=== PATIENT | male | born 1990 | race Caucasian/White ===

== ENCOUNTER 2020-01-20 07:05 | Outpatient (REF) | payer SELFPAY | END 2020-01-20 07:06 | disposition home or self-care (01) | LOC: HO.LAB 07:05 | PROVIDERS: Visit Provider Internal Medicine | DX: Z20.828 Contact with and (suspected) exposure to other viral communicable diseases (principal) | CPT/HCPCS: C9803; U0003 ==

== ENCOUNTER 2022-11-24 07:09 | Emergency (ER) | payer OTHER, SELFPAY ==
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
[2022-11-24 07:17] VITALS: BP 126/60; BP 135/73; PULSE 60; PULSE 70; RESP 18; TEMP 36.4; O2SAT 99; BMI 31.9
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
[2022-11-24] MEDS: Ibuprofen 400 MG TABLET PO (07:24)
== END 2022-11-24 08:10 | disposition home or self-care (01) ==
PROVIDERS: Emergency Provider Emergency Medicine Emergency Medical Services; PCP Internal Medicine
DX: S39.012A Strain of muscle, fascia and tendon of lower back, initial encounter (principal); V43.52XA Car driver injured in collision with other type car in traffic accident, initial encounter; Y93.9 Activity, unspecified; Y92.410 Unspecified street and highway as the place of occurrence of the external cause; Y99.9 Unspecified external cause status
CPT/HCPCS: 72100; 99283

== ENCOUNTER 2023-08-26 13:27 | Emergency (ER) | payer OTHER, SELFPAY ==
--- NOTE | ~2023-08-26 | XR_ITS ---
EXAMINATION: XR KNEE, RIGHT CLINICAL INFORMATION: Evaluate for joint effusion COMPARISON: None available. TECHNIQUE: Four views of the right knee. FINDINGS: There is osteonecrosis of the distal medial femoral condyle with a subcortical lytic area with surrounding sclerosis and an area of punctate sclerosis centrally. No fracture or joint effusion. Alignment is anatomic. Joint spaces are maintained. There is marked enthesopathy in the anterior tibial tuberosity with associated soft tissue swelling. XR/XR knee RT 3V IMPRESSION: 1. Osteonecrosis of the distal medial femoral condyle. 2. Marked enthesopathy in the anterior tibial tuberosity with associated soft tissue swelling.
[2023-08-26 13:49] VITALS: BP 129/78; PULSE 78; RESP 18; TEMP 36.7; O2SAT 98; BMI 37.7
--- NOTE | 2023-08-26 13:52 | ED_ITS ---
HPI - Skin/Abscess/Foreign Bdy General Chief complaint: General Medical Stated complaint: R knee pain Time Seen by Provider: 08/26/23 14:22 Source: patient and RN notes reviewed Mode of arrival: ambulatory Limitations: no limitations History of Present Illness ED Provider: Taina Livingston PA-C HPI narrative: This is a 32-year-old male who presents emergency complaints of right knee pain and redness x1 week. 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 He states he has had increased pain, swelling, and redness to his right knee. Denies history of symptoms of his knee in the past. He denies any fevers, chills, chest pain, shortness abdominal pain nausea, vomiting or diarrhea. Pain worsens with palpation, and with movement of his knee. No other complaints or concerns at this time. Severity: mild Quality: aching Pain Consistency: constant Relieving factors: none Exacerbating factors: palpation and movement Context: none Associated symptoms: denies other symptoms Treatments prior to arrival: none Related Data Previous Rx's ?Medication ?Instructions ?Recorded ibuprofen 400 mg tablet 400 mg PO Q6H PRN pain #20 tabs 11/24/22 cephalexin 500 mg capsule 500 mg PO QID 5 days #20 caps 08/26/23 naproxen 500 mg tablet 500 mg PO BID #30 tabs 08/26/23 Allergies Allergy/AdvReac Type Severity Reaction Status Date / Time No Known Allergies Allergy Verified 08/26/23 13:53 Review of Systems 2 Review of Systems: Yes all other systems are reviewed and are negative Constitutional: Constitutional: Reports as per [facility] Past Medical History Attestation statement: The following information was validated with the patient. Social History Social History Advance Directives: No Advance Directives Information Provided: Yes Do you have a plan to hurt others: No Plan Physical Exam 2 Vital Signs: Vital Signs: Last Vital Signs Temp 98.1 F 08/26/23 16:28 Pulse 78 08/26/23 16:28 Resp 18 08/26/23 16:28 BP 129/78 08/26/23 16:28 Pulse Ox 98 08/26/23 16:28 O2 Del Method Room Air 06/30/24 16:28 BMI result Body Mass Index 37.7 Const: General: cooperative, comfortable and no acute distress O rientation/consciousness: patient oriented x3 Limitations: no limitations HEENT: Head: Yes normal to inspection, Yes normocephalic and Yes atraumatic Ears: hearing grossly normal bilaterally General nose exam: Normal external nose present Face and sinus: Yes normal facial exam Mouth: Normal oral and palatal mucosa present, oropharynx normal and moist mucous membranes Throat: Yes posterior oropharynx normal Eyes: General: appearance normal, both eyes and all related structures E yelids: Yes eyelids normal Conjunctivae: conjunctivae normal Sclerae: s clerae normal Pupils: Equal, round and reactive pupils present EOM: EOMs intact bilaterally Neck: Neck: Yes normal visual inspection, Yes full ROM and Yes no lymphadenopathy Lymphatic: no lymphadenopathy noted Chest: Chest palpation & inspection: normal inspection of the chest Resp: Effort & Inspection: normal respiratory effort and able to speak in complete sentences Auscultation: clear to auscultation bilaterally, no crackles, no rales, no rhonchi and no wheezes Cardio: Rate: regular rate Rhythm: regular rhythm Heart sounds: S1 normal heart sound present and S2 normal heart sound present GI: Inspection: Yes normal to inspection Skin: General skin exam: no rashes or lesions noted Trauma: no lacerations or abrasions Wounds: no wounds Neuro: General: patient oriented x3 and moves all extremities Cranial nerves: Yes Equal, round and reactive pupils present Extrem: Other: Right knee, with tenderness palpation in the prepatellar region, with slight erythema noted to the medial aspect of the knee with tenderness palpation. No calf tenderness to palpation, negative anterior-posterior drawer, no pain with varus and valgus strain, full range of motion no open wounds General: Yes normal to inspection Right upper extremity: normal to inspection Left upper extremity: normal to inspection Right lower extremity: normal to inspection Left lower extremity: normal to inspection Course Course Course Narrative: This is a rapid medical exam. Deferred additional HPI, ROS, PE to primary provider. 32 yo male healthy here with right knee swelling, redness and pain. 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 Cant recall any specific injury or open area Able to flex/extend knee in triage with no issues Will obtain labs, x-ray CANDELARIA -A. Pascucci [employer] Medical Decision Making Medical Decision Making MDM Narrative: This is a 32-year-old male who presents emergency department with complaints of right knee pain x1 week. Patient has been on his knees for prolonged periods of time this past week. Patient has mild to the medial aspect of his knee. He has full range of motion. Differential diagnoses include bursitis, early cellulitis, septic joint-unlikely, gout. Given appearance, labs were obtained, patient has no leukocytosis, H&H within normal limits. He is high inflammatory markers. X-ray revealing osteonecrosis of the distal medial femoral condyle as well as marked enthesopathy in the anterior tibial tuberosity with associated soft tissue swelling. Discussed findings with orthopedic Jovany IBRAHIM, who state that this is likely a chronic finding and sounds like bursitis. Discussed findings with patient as well as . Will treat with anti-inflammatories as well as antibiotics as this may be the start of an early infection. Discussed the importance of following up with orthopedics. They understand and agree with plan. Differential Diagnosis Differential Diagnoses: The differential diagnosis associated with the presentation includes See above Admission/Observation Consideration of admission/observation: Escalation of care including admission/observation considered Escalation of care including admission/observation considered however given workup today not warranted at this time. Consult Healthcare Provider Management of the patient was discussed with: Striping Machine Operator Jovany Yancey PA-C - Orthopedics, see above MDM for comment Lab Data [facility] Lab Attestation statement: I reviewed the patient's lab results. No leukocytosis, stable H&H, inflammatory markers elevated at 3.07 08/26/23 14:11 08/26/23 14:11 Labs: Lab Results 08/26/23 Range/Units 14:11 WBC 10.8 (4.8-10.8) X10*3/uL RBC 5.47 (4.60-5.80) X10*6/uL Hgb 14.4 (14.0-18.0) g/dl Hct 44.2 (42.0-52.0) % MCV 80.8 (80.0-98.0) fL MCH 26.3 L (27.0-33.0) pg MCHC 32.6 (31.0-36.0) g/dl RDW 14.1 (11.0-16.0) % Plt Count 324 (160-400) X10*3/uL MPV 8.9 L (9.4-12.4) fL Immature Gran % (Auto) 0.5 H (0.0-0.4) % Neut % (Auto) 71.5 (45-73) % Lymph % (Auto) 17.2 L (20-40) % Ponce % (Auto) 9.5 (2-11) % Eos % (Auto) 0.7 (0-4) % Baso % (Auto) 0.6 (0-2) % Lymph # (Auto) 1.9 (1.2-4.9) X10*3/uL Ponce # (Auto) 1.0 (0.1-1.2) X10*3/uL Eos # (Auto) 0.1 (0.0-0.4) X10*3/uL Baso # (Auto) 0.1 (0.0-0.2) X10*3/uL Abs Immat Gran (auto) 0.05 H (0.00-0.03) X10*3/uL Absolute Neuts (auto) 7.7 (2.0-8.3) x10*3/uL Absolute Nucleated RBC 0.000 (0.0-0.012) X10*3/uL Nucleated RBC % (auto) 0.0 (0.0-0.2) /100WBC Sodium 139 (135-145) mmol/L Potassium 4.1 (3.3-5.1) mmol/L Chloride 105 (96-108) mmol/L Carbon Dioxide 26 (22-29) mmol/L Anion Gap 12 (12-20) BUN 9 (9-16) mg/dL Creatinine 0.91 (0.5-1.4) mg/dL Estim Creat Clear Calc 161.3 Estimated GFR > 60 Random Glucose 90 (60-115) mg/dL Calcium 9.5 (8.4-10.2) mg/dL C-Reactive Protein 3.07 H (< or = 0.50) mg/dL Radiology Impression Discussion of test interpretation with radiology: I have reviewed the radiologist's reading. Radiologist Impression: XR/XR knee RT 3V IMPRESSION: 1. Osteonecrosis of the distal medial femoral condyle. 2. Marked enthesopathy in the anterior tibial tuberosity with associated soft tissue swelling. Dictated By: José Miguel Mendez MD Discharge Plan Discharge Clinical Impression: Knee pain, Bursitis Patient Disposition: Home, Self-Care Instructions: Knee Bursitis (ED) Additional Instructions: You were seen in the emergency department due to right knee pain. Your labs reveal an inflammatory process. Please use naproxen as directed. Please take antibiotic as prescribed as this may be an early cellulitis. Please perform gentle range of motion, and follow-up with your orthopedist. Call to make an appointment. Get knee braces to protect your knees while at work. Any new or worsening symptoms occur but not limited to decreased range of motion, fevers, chills, increased redness, swelling, please return for re- evaluation. Prescriptions: New naproxen 500 mg tablet 500 mg PO BID Qty: 30 0RF cephalexin 500 mg capsule 500 mg PO QID 5 Days Qty: 20 0RF No Action ibuprofen 400 mg tablet 400 mg PO Q6H PRN (Reason: pain) Qty: 20 0RF Referrals: [facility] [Provider Group] Interventions: ED Discharge Assessment Last Done: 08/26/23 16:28 Discharge Date/Time: 08/26/23 16:28 Print Language: [place] Citizen
[2023-08-26 14:18] LABS: MANUAL DIFF FLAG NO
[2023-08-26 14:22] LABS: Basophils Absolute Auto 0.1 X10*3/uL (0.0-0.2); Basophils Percent Auto 0.6 % (0-2); Eosinophils Absolute Auto 0.1 X10*3/uL (0.0-0.4); Eosinophils Percent Auto 0.7 % (0-4); Hematocrit 44.2 % (42.0-52.0); Hemoglobin 14.4 g/dl (14.0-18.0); Imm Gran Abs Auto 0.05 X10*3/uL (0.00-0.03); Imm Gran Pct Auto 0.5 % (0.0-0.4); Lymphocytes Absolute Auto 1.9 X10*3/uL (1.2-4.9); Lymphocytes Percent Auto 17.2 % (20-40); Mean Corpuscular HGB Conc 32.6 g/dl (31.0-36.0); Mean Corpuscular Hemoglobin 26.3 pg (27.0-33.0); Mean Corpuscular Volume 80.8 fL (80.0-98.0); Mean Platelet Volume 8.9 fL (9.4-12.4); Monocytes Percent Auto 9.5 % (2-11); Neutrophils Absolute Auto 7.7 x10*3/uL (2.0-8.3); Neutrophils Percent Auto 71.5 % (45-73); Platelet Count 324 X10*3/uL (160-400); Red Blood Count 5.47 X10*6/uL (4.60-5.80); Red Cell Distribution Width 14.1 % (11.0-16.0); White Blood Count 10.8 X10*3/uL (4.8-10.8)
[2023-08-26 14:45] LABS: Anion Gap 12 (12-20); Blood Urea Nitrogen 9 mg/dL (9-16); C Reactive Protein 3.07 mg/dL (< or = 0.50); Calcium 9.5 mg/dL (8.4-10.2); Carbon Dioxide 26 mmol/L (22-29); Chloride 105 mmol/L (96-108); Creatinine Clr Calc Pharmacy 161.3; Estimated Glomerular Filt Rate > 60; Glucose Random 90 mg/dL (60-115); Potassium 4.1 mmol/L (3.3-5.1); Sodium 139 mmol/L (135-145)
[2023-08-26 16:28] VITALS: BP 129/78; PULSE 78; RESP 18; TEMP 36.7; O2SAT 98
== END 2023-08-26 16:28 | disposition home or self-care (01) ==
PROVIDERS: Nurse Practitioner Family; Emergency Provider Emergency Medicine; PCP Internal Medicine
DX: M70.51 Other bursitis of knee, right knee (principal); Z79.899 Other long term (current) drug therapy
CPT/HCPCS: 36415; 73562; 80048; 85025; 86140; 99283